=== PATIENT | female | born 1970 | race Caucasian/White ===

== ENCOUNTER 2020-03-01 11:12 | Emergency (ER) | payer OTHER ==
[~2020-03-01] VITALS: Ht 157.5 cm; Wt 44.6 kg
[2020-03-01] MEDS ORDERED: LIDOcaine 5% patch TP STA (12:39)
[2020-03-01] MEDS ORDERED: LIDO700A32 TOP (12:49)
[2020-03-01 12:54] VITALS: BP 109/86
== END 2020-03-01 13:07 | disposition home or self-care (01) ==
LOC: ER 11:13
DX: S20.219A Contusion of unspecified front wall of thorax, initial encounter (principal); M25.551 Pain in right hip; M25.552 Pain in left hip; R10.13 Epigastric pain; F17.200 Nicotine dependence, unspecified, uncomplicated; Z98.890 Other specified postprocedural states; Z88.0 Allergy status to penicillin; Z88.2 Allergy status to sulfonamides; Z91.040 Latex allergy status; Z79.899 Other long term (current) drug therapy; W18.39XA Other fall on same level, initial encounter; Y93.01 Activity, walking, marching and hiking; Y92.89 Other specified places as the place of occurrence of the external cause; Y99.8 Other external cause status
CPT/HCPCS: 71045; 99284

== ENCOUNTER 2021-01-04 18:29 | Emergency (ER) | payer OTHER ==
[~2021-01-04] VITALS: Ht 154.9 cm; Wt 42.7 kg
[~2021-01-04 18:29] MED LIST: LIDO700A32 TOP
[2021-01-04 19:39] VITALS: BP 143/98
--- NOTE | 2021-01-04 19:39 | NUR ---
CUFF CHANGED TO ADULT SMALL
--- NOTE | 2021-01-04 19:51 | NUR ---
PATIENT HERE DUE TO DIFFICULTY BREATHING, DENIES SOB AT THIS TIME "3/4 GOOD", RR EVEN UNLABORED, ON RA SPO2 100%; LUNGS CL, GOOD COLOR PTYC/O OF BLOODY NOSE AFTER BLOWING IT AND THEN COUGHING UPA SPOT OF BLOOD
[2021-01-04 20:04] LABS: BASOPHILS # (AUTO) 0.1 X10'3 (0-0.2); BASOPHILS % (AUTO) 0.6 % (0-1); EOSINOPHILS # (AUTO) 0.3 X10'3 (0-0.9); EOSINOPHILS % (AUTO) 1.9 % (0-6); HEMOGLOBIN 12.9 g/dl (12.0-16.0); LYMPHOCYTES # (AUTO) 1.8 X10'3 (1.1-4.8); LYMPHOCYTES % (AUTO) 12.9 % (21-51); MEAN CORPUSCULAR HEMOGLOBIN 33.4 PG (27.0-31.0); MEAN CORPUSCULAR VOLUME 98.2 FL (78-98); MEAN PLATELET VOLUME 7.2 FL (7.4-10.4); MONOCYTES # (AUTO) 0.9 X10'3 (0-0.9); NEUTROPHILS % (AUTO) 78.6 % (42-75); PLATELET COUNT 238 X10'3 (140-440); RED BLOOD COUNT 3.87 X10'6 (4.20-5.60); RED CELL DISTRIBUTION WIDTH 14.9 % (11.5-14.5); WHITE BLOOD COUNT 14.1 X10'3 (4.5-11.0)
[2021-01-04 20:25] LABS: ALANINE AMINOTRANSFERASE 23 U/L (12-78); ALBUMIN 3.7 G/DL (3.4-5.0); ALBUMIN/GLOBULIN RATIO 1.1 (1.1-1.5); ALKALINE PHOSPHATASE 99 IU/L (46-116); ANION GAP 13 (8-16); ASPARTATE AMINO TRANSFERASE 29 U/L (10-37); BILIRUBIN,TOTAL 0.2 MG/DL (0.1-1.0); BLOOD UREA NITROGEN 6 MG/DL (7-18); BUN/CREATININE RATIO 7.9 (6.6-38.0); CALCIUM 8.6 MG/DL (8.5-10.1); CHLORIDE 101 MMOL/L (99-107); CREATININE 0.76 MG/DL (0.40-0.90); GLUCOSE 100 MG/DL (70-104); POTASSIUM 3.5 MMOL/L (3.5-5.1); SODIUM 139 MMOL/L (135-145); TOTAL CARBON DIOXIDE 24.8 MMOL/L (24-32); TOTAL PROTEIN 7.2 G/DL (6.4-8.2); eGFR 81 ML/MIN
[2021-01-04] MEDS ORDERED: AZIT500T PO (21:00)
[2021-01-04] MEDS ORDERED: ALBU8.5H8 INH (21:24)
== END 2021-01-04 21:41 | disposition home or self-care (01) ==
LOC: ER 18:30
DX: J90 Pleural effusion, not elsewhere classified (principal); R05 Cough; R50.9 Fever, unspecified; R06.02 Shortness of breath; Z98.890 Other specified postprocedural states; Z88.0 Allergy status to penicillin; Z88.2 Allergy status to sulfonamides; Z91.040 Latex allergy status; Z79.2 Long term (current) use of antibiotics; Z79.899 Other long term (current) drug therapy
CPT/HCPCS: 36415; 71045; 80053; 85025; 99284

== ENCOUNTER 2022-09-23 19:14 | Emergency (ER) | payer OTHER, SELFPAY ==
[~2022-09-23] VITALS: Ht 157.5 cm; Wt 41.8 kg
[~2022-09-23 19:14] MED LIST changes: +ALBU8.5H17 INH
[2022-09-23 19:29] LABS: BASOPHILS # (AUTO) 0.1 X10'3 (0-0.2); BASOPHILS % (AUTO) 0.5 % (0-1); EOSINOPHILS # (AUTO) 0.1 X10'3 (0-0.9); EOSINOPHILS % (AUTO) 0.6 % (0-6); HEMATOCRIT 31.5 % (35.0-45.0); HEMOGLOBIN 10.8 g/dl (12.0-16.0); LYMPHOCYTES % (AUTO) 5.9 % (21-51); MEAN CORPUSCULAR HEMOGLOBIN 32.5 PG (27.0-31.0); MEAN CORPUSCULAR HGB CONC 34.2 g/dL (33.0-36.5); MONOCYTES # (AUTO) 1.8 X10'3 (0-0.9); MONOCYTES % (AUTO) 10.6 % (2-12); NEUTROPHILS # (AUTO) 13.7 X10'3 (1.8-7.7); NEUTROPHILS % (AUTO) 82.4 % (42-75); PLATELET COUNT 374 X10'3 (140-440); RED BLOOD COUNT 3.32 X10'6 (4.20-5.60); RED CELL DISTRIBUTION WIDTH 12.5 % (11.5-14.5); WHITE BLOOD COUNT 16.6 X10'3 (4.5-11.0)
[2022-09-23 19:35] VITALS: BP 106/76
[2022-09-23 19:53] LABS: ALANINE AMINOTRANSFERASE 14 U/L (12-78); ALBUMIN 2.6 G/DL (3.4-5.0); ALBUMIN/GLOBULIN RATIO 0.6 (1.1-1.5); ALKALINE PHOSPHATASE 152 IU/L (46-116); ANION GAP 7 (8-16); ASPARTATE AMINO TRANSFERASE 21 U/L (10-37); BILIRUBIN,TOTAL 0.5 MG/DL (0.1-1.0); BLOOD UREA NITROGEN 4 MG/DL (7-18); BUN/CREATININE RATIO 5.7 (6.6-38.0); CALCIUM 8.2 MG/DL (8.5-10.1); CHLORIDE 93 MMOL/L (99-107); GLUCOSE 120 MG/DL (70-104); MAGNESIUM 1.3 MG/DL (1.5-2.4); SODIUM 131 MMOL/L (135-145); TOTAL CARBON DIOXIDE 30.6 MMOL/L (24-32); TOTAL PROTEIN 6.7 G/DL (6.4-8.2); eGFR 88 ML/MIN
[2022-09-23 19:56] LABS: POTASSIUM 2.8 MMOL/L (3.5-5.1)
== END 2022-09-24 03:17 | disposition left against medical advice (07) ==
LOC: ER 19:14
DX: R05.9 Cough, unspecified (principal); R09.89 Other specified symptoms and signs involving the circulatory and respiratory systems; Z20.822 Contact with and (suspected) exposure to COVID-19; Z53.21 Procedure and treatment not carried out due to patient leaving prior to being seen by health care provider
CPT/HCPCS: 36415; 71045; 80053; 83735; 83880; 84484; 85025; 87502; 87503; 87635; 93005; C9803